=== PATIENT | male | born 1950 | race Caucasian/White ===

== ENCOUNTER 2016-07-21 11:55 | Observation (INO) | payer MEDICARE, OTHER ==
[~2016-07-21] VITALS: Ht 167.6 cm; Wt 70.0 kg
[2016-07-21] MEDS ORDERED: SOD CHLORIDE 0.9% 1,000 ML IV STA (12:08)
[2016-07-21] MEDS ORDERED: DILTIAZEM-D5W 125MG/125ML DRIP 125 ML IV STA (12:28)
[2016-07-21] MEDS ORDERED: DILTIAZEM 25 MG INJ IV ONE (12:30)
[2016-07-21] MEDS ORDERED: DILT120C77 PO (12:33)
[2016-07-21] MEDS ORDERED: LISI10TA2 PO (12:34)
[2016-07-21] MEDS ORDERED: TERA2CAP3 PO (12:34)
[2016-07-21] MEDS ORDERED: DOCU250C58 PO (12:35)
[2016-07-21] MEDS ORDERED: TAMS0.4C2 PO (12:35)
[2016-07-21] MEDS ORDERED: CLON-379 PO (12:35)
[2016-07-21 12:43] LABS: BASOPHILS % 0.4 % (0.0-2.0); EOSINOPHILS % 0.4 % (0.0-7.0); HEMATOCRIT 46.9 % (42.0-52.0); HEMOGLOBIN 15.9 g/dl (14.0-18.0); LYMPHOCYTES # 2.4 10^3/ul (0.8-2.9); LYMPHOCYTES % 22.8 % (15.0-51.0); MEAN CORPUSCULAR HEMOGLOBIN 31.3 pg (29.0-33.0); MEAN CORPUSCULAR HGB CONC 33.8 g/dl (32.0-37.0); MEAN CORPUSCULAR VOLUME 92.4 fl (82.0-101.0); MEAN PLATELET VOLUME 8.6 fl (7.4-10.4); MONOCYTE # 0.3 10^3/ul (0.3-0.9); MONOCYTES % 2.6 % (0.0-11.0); NEUTROPHIL # 7.8 10^3/ul (1.6-7.5); NEUTROPHILS % 73.8 % (39.0-77.0); PLATELET COUNT 272 10^3/UL (140-440); RED BLOOD COUNT 5.08 10^6/ul (4.70-6.10); RED CELL DISTRIBUTION WIDTH 12.2 % (11.5-14.5); UNCORRECTED WBC 10.6 10^3/ul (4.8-10.8); WHITE BLOOD COUNT 10.6 10^3/ul (4.8-10.8)
[2016-07-21 12:46] LABS: CONDITION 1
[2016-07-21] MEDS ORDERED: DEXTROSE 50% 50 ML SYRINGE IV STA (13:01)
[2016-07-21 13:05] LABS: CHLORIDE 102 mmol/L (97-110); POTASSIUM 3.8 mmol/L (3.5-5.1); SODIUM 146 mmol/L (135-144)
[2016-07-21 13:07] LABS: BILIRUBIN,INDIRECT 0.2 mg/dl (0-1.1); BILIRUBIN,TOTAL 0.2 mg/dl (0.2-1.3); CREATININE 1.17 mg/dl (0.61-1.24)
[2016-07-21 13:08] LABS: ALANINE AMINOTRANSFERASE 32 IU/L (13-69); ALBUMIN/GLOBULIN RATIO 1.56; ALKALINE PHOSPHATASE 111 IU/L (42-121); ANION GAP 29 (8-16); ASPARTATE AMINO TRANSFERASE 38 IU/L (15-46); BLOOD UREA NITROGEN 26 mg/dl (7-20); CALCIUM 9.5 mg/dl (8.4-10.2); CARBON DIOXIDE 19 mmol/L (21-31); CREATINE KINASE 164 IU/L (23-200); GLUCOSE 59 mg/dl (70-220); TOTAL PROTEIN 8.2 g/dl (6.1-8.1)
--- NOTE | 2016-07-21 13:08 | ERA ---
ER Documentation Chief Complaint Date/Time DATE: 07/21/16 TIME: 13:03 Chief Complaint BIB RA FOR EVAL OF TACHYCARDIA AND LOW BG. HPI This is a 65-year-old male with a known history of atrial fibrillation, hypertension and high cholesterol. The patient states that upon awakening this morning he had palpitations without chest pain or pressure that radiated to the neck arm back or jaw. He indicated that yesterday he had been drinking a significant amount of alcohol with some friends who were in town and had not eaten breakfast this morning. He felt weak and dizzy and therefore phoned 911. When EMS arrived they indicated that the patient had an EKG tracing that showed sinus tachycardia 160. He was hypoglycemic with a blood sugar of 50 and was given glucose paste. The patient had no changes in his mental status according to EMS and he was able to ambulate without any difficulty. He denied headache or changes in vision. He denied any numbness or tingling of his upper or lower extremities. He does not have a history of diabetes. He denies any polyuria or polydipsia. He has been compliant with all his medications which includes diltiazem. ROS All systems reviewed and are negative except as per history of present illness. Medications Home Meds Reported Medications Docusate Sodium* (Colace*) 250 Mg Capsule, 250 MG PO BID, #60 CAP 07/21/16 Clonidine Hcl* (Clonidine Hcl*) 0.1 Mg Tab, 0.1 MG PO Q8, TAB 07/21/16 Tamsulosin Hcl* (Tamsulosin Hcl*) 0.4 Mg Cap.er.24h, 0.4 MG PO DAILY, CAP 07/21/16 Lisinopril* (Lisinopril*) 10 Mg Tablet, 10 MG PO DAILY, #30 TAB 07/21/16 Terazosin Hcl* (Terazosin Hcl*) 2 Mg Capsule, 2 MG PO HS, CAP 07/21/16 Diltiazem Hcl* (Cardizem CD*) 120 Mg Cap.sr.24h, 120 MG PO DAILY, #30 CAP 07/21/16 Allergies Allergies: Coded Allergies: No Known Allergy (Unverified , 07/21/16) Physical Exam Vitals Vital Signs Date Time Temp Pulse Resp B/P Pulse Ox O2 Delivery O2 Flow Rate FiO2 07/21/16 13:27 128 19 158/82 100 Room Air 07/21/16 12:09 97.6 159 20 161/114 100 Physical Exam Constitutional:Well-developed. Well-nourished. HEENT:Normocephalic. Atraumatic.Pupils were equal round reactive to light. Moist mucous membranes.No tonsillar exudates. Neck: No nuchal rigidity. No lymphadenopathy. No posterior cervical spine tenderness or step-offs. Respiratory: Not using accessory muscles of respiration.Lungs were clear to auscultation bilaterally. No rhonchi. No rales. No wheezing. Cardiovascular: Tachycardic with irregular regular rhythm and no murmurs. No rubs were appreciated.S1, S2 normal. Distal pulses are palpable 2+ bilaterally. GI: Abdomen was soft. Nontender. Non Distended. No pulsatile abdominal masses or bruits. No rebound. No guarding. Bowel sounds were present and normal. Muscle skeletal: Full range of motion of both the upper and lower extremities bilaterally.Normal muscle tone.No assymetrical calf tenderness or swelling. Skin: No petechia, no purpura. No lesions on the palms or the soles of the feet. No maculopapular rash. NEURO: Patient was alert, awake, orientated x3.No facial droop. Gait observed and normal with no ataxia.Speech had regular rate and rhythm. No focal neurological deficits. Result Diagram: 07/21/16 1230 07/21/16 1230 Results 24 hrs Laboratory Tests Test 07/21/16 12:21 07/21/16 12:30 07/21/16 13:30 Bedside Glucose 59mg/dL 115mg/dL Activated Partial Thromboplast Time 28.2Sec Alanine Aminotransferase (ALT/SGPT) 32IU/L Albumin 5.0g/dl Albumin/Globulin Ratio 1.56 Alkaline Phosphatase 111IU/L Anion Gap 29 Aspartate Amino Transf (AST/SGOT) 38IU/L B-Type Natriuretic Peptide 62PG/ML Basophils # 0.010^3/ul Basophils % 0.4% Blood Urea Nitrogen 26mg/dl Calcium Level 9.5mg/dl Carbon Dioxide Level 19mmol/L Chloride Level 102mmol/L Creatine Kinase 164IU/L Creatine Kinase Index 1.6 Creatinine 1.17mg/dl Creatinine Kinase MB (Mass) 2.62ng/ml Direct Bilirubin 0.00mg/dl Eosinophils # 0.010^3/ul Eosinophils % 0.4% Ethyl Alcohol Level 63.0mg/dl Globulin 3.20g/dl Glucose Level 59mg/dl Hematocrit 46.9% Hemoglobin 15.9g/dl Hemoglobin A1c 5.8% INR International Normalized Ratio 0.94 Indirect Bilirubin 0.2mg/dl Lipase 63U/L Lymphocytes # 2.410^3/ul Lymphocytes % 22.8% Mean Corpuscular Hemoglobin 31.3pg Mean Corpuscular Hemoglobin Concent 33.8g/dl Mean Corpuscular Volume 92.4fl Mean Platelet Volume 8.6fl Monocytes # 0.310^3/ul Monocytes % 2.6% Neutrophils # 7.810^3/ul Neutrophils % 73.8% Nucleated Red Blood Cells # 0.010^3/ul Nucleated Red Blood Cells % 0.0/100WBC Platelet Count 44186^3/UL Potassium Level 3.8mmol/L Prothrombin Time 12.6Sec Prothrombin Time Ratio 1.0 Red Blood Count 5.0810^6/ul Red Cell Distribution Width 12.2% Sodium Level 146mmol/L Total Bilirubin 0.2mg/dl Total Protein 8.2g/dl Troponin I < 0.012ng/ml White Blood Count 10.610^3/ul Current Medications Medications (Trade) Dose Ordered Sig/Efraín Route PRN Reason Start Time Stop Time Status Last Admin Dose Admin Sodium Chloride (NS) 1,000 ml @ 1,000 mls/hr Q1H STAT IV 07/21/16 12:08 07/21/16 13:07 DC 07/21/16 12:22 Diltiazem HCl 20 mg 20 mg ONCE ONCE IV 07/21/16 12:30 07/21/16 12:31 DC 07/21/16 12:40 Diltiazem HCl (Cardizem-D5W 125 Mg/125 ml Drip) 125 ml @ 5 mls/hr ONCE STAT IV 07/21/16 12:28 07/22/16 13:27 07/21/16 12:40 Dextrose (D50w Syringe) 50 ml ONCE STAT IV 07/21/16 13:01 07/21/16 13:06 DC Procedures/MDM This patient presented to the emergency department with hypoglycemia and tachycardia. He was immediately placed on a property assessment monitor continuous pulse oximetry and IV access was established by nursing staff. The patient was alert awake oriented 3 and was given oral complex carbohydrates to improve his hypoglycemia in addition to an amp of D50. The patient does not have a history of diabetes and I did feel his hypoglycemia could be a result of lack of oral intake with alcohol consumption within the past 24 hours. The patient however was in atrial fibrillation with RVR and therefore was given IV Cardizem and started on a Cardizem drip. 12 Lead EKG tracing ordered and reviewed by myself showed: Tachycardic with irregular regular rhythm at 558 bpm and no arrhythmia. IN interval not appreciated as patient had no P waves and was in A. fib with RVR QRS duration normal. No ST segment elevation No ST segment depression. No changes consistent with acute ischemia. The patient will be admitted under the care of , in serious condition with an anticipated stay of greater than 2 midnights and will go to the telemetry service. The patient did have an episode of nonbloody nonbilious emesis in the emergency department. The patient was given a banana bag his serum ethanol level was undetected to supplement for any metabolic abnormalities from his clinical symptoms likely as a result of alcoholic gastritis. He received IV Zofran. Critical Care: Time: 50 minutes Treatments/Evaluations: Close monitoring and treatment of unstable vital signs, cardiorespiratory, and neurologic status, while maintaining tight balance of fluid, respiratory, and cardiac interventions. Time does not include performing any of the above billable procedures. Departure Diagnosis: Primary Impression: Atrial fibrillation with RVR Additional Impressions: Hypoglycemia Acute alcoholic gastritis without hemorrhage Condition: Serious PAYAM MAKI Jul 21, 2016 13:08
[2016-07-21 13:12] LABS: INR 0.94; PROTIME 12.6 Sec (12.2-14.2)
[2016-07-21 13:13] LABS: PARTIAL THROMBOPLASTIN TIME 28.2 Sec (25.0-35.0)
--- NOTE | 2016-07-21 13:26 | RADRPT ---
PROCEDURE: XR Chest. CLINICAL INDICATION: Chest pain. TECHNIQUE: Chest x-ray, single view. COMPARISON: None. FINDINGS: The cardiomediastinal silhouette is normal. Mild aortic arch atherosclerotic calcification is presen t. The lungs are clear. Skeletal structures and upper abdomen are unremarkable. IMPRESSION: Unremarkable chest x-ray. RPTAT: HLST .Tracie May MD, MD Date Time Electronically viewed and signed by .Tracie May MD, on 07/21/2016 13:25 .T/
[2016-07-21 13:32] LABS: B-TYPE NATRIURETIC PEPTIDE 62 PG/ML (0-125)
[2016-07-21] MEDS ORDERED: MAGNESIUM SULFATE 2 GM, MULTIVITAMINS 10 ML, THIAMINE 100 MG, FOLIC ACID 1 MG in SOD CH... IV STA (13:32)
[2016-07-21] MEDS ORDERED: ONDANSETRON 4 MG INJ IV STA (13:32)
[2016-07-21 13:37] LABS: CK-MB 2.62 ng/ml (0.0-2.4); TROPONIN-I < 0.012 ng/ml (0.00-0.12)
[2016-07-21] MEDS ORDERED: ONDANSETRON 4 MG INJ IV PRN ×2 (14:30→16:30)
[2016-07-21] MEDS ORDERED: ACETAMINOPHEN 325 MG TAB PO PRN ×2 (14:30→16:30)
[2016-07-21] MEDS ORDERED: MAGNESIUM HYDROXIDE 30ML CUP PO PRN (16:30)
[2016-07-21] MEDS ORDERED: MAGNESIUM SULFATE 2 GM/50 ML 50 ML IVPB ONE (16:30)
[2016-07-21] MEDS ORDERED: BISACODYL 10 MG SUPP PR PRN (16:30)
[2016-07-21] MEDS ORDERED: DOCUSATE SODIUM 100 MG CAP PO PRN (16:30)
[2016-07-21] MEDS ORDERED: morphine 2 MG INJ IV PRN (16:30)
[2016-07-21] MEDS ORDERED: NACL 0.9% 3 ML SYG IV SCH (16:30)
[2016-07-21] MEDS ORDERED: DEXTROSE 50% 50 ML SYRINGE IV PRN ×2 (17:00)
[2016-07-21] MEDS ORDERED: GLUCOSE GEL 15 GRAM TUBE PO PRN ×2 (17:00)
[2016-07-21] MEDS ORDERED: GLUCOSE GEL 15 GRAM TUBE BUCCAL PRN (17:00)
[2016-07-21] MEDS ORDERED: GLUCAGON 1 MG INJ IM PRN (17:00)
--- NOTE | 2016-07-21 18:24 | HP ---
DATE OF ADMISSION: 07/21/2016 PRIMARY CARE PHYSICIAN: Dr. Ahuja. CHIEF COMPLAINT ON ADMISSION: Palpitations. HISTORY OF PRESENT ILLNESS: This is a 65-year-old male with a history of hypertension on multiple m edications including Cardizem and also history of kidney stones who presented to the [facility] with complaint of palpitations that he started feeling around 9 a.m. this morning. The patien yenni reports that last night he went to a democrat with his friends and he did drink a large amount of teq uila. When he woke up this morning he was having the palpitations. He was nauseous. He did take h is diltiazem this morning. In the emergency department, he was found to be in atrial fibrillation w ith rapid ventricular rate with heart rate in the 160s. His heart rate remained high even with 20 m g of Cardizem IV. Therefore, he was started on a Cardizem drip. The patient just converted this af ternoon around 5 p.m. to sinus rhythm. He will be taken off the Cardizem drip and restarted on his Cardizem outpatient dosing. The patient denies any fevers, chills. He denies nausea and vomiting a ctually. He feels much better currently. He was given a banana bag in the emergency department and started on IV fluids. He denies any previous history of atrial fibrillation or arrhythmia. He is still working and he is very active. He walks a total of 4 miles a day. He is being [facility] work[facility]. ALLERGIES: NO KNOWN ALLERGIES. PAST MEDICAL HISTORY: 1. Nephrolithiasis. 2. Hypertension. PAST SURGICAL HISTORY: None. SOCIAL HISTORY: The patient lives with family. He denies any tobacco use or history of tobacco use . He does drink alcohol occasionally and obviously a little heavily yesterday. OUTPATIENT MEDICATIONS: 1. Cardizem CD 120 mg p.o. daily in the morning. 2. Clonidine 0.1 mg p.o. q. 8 hours as needed for elevated blood pressure. 3. Flomax 0.4 mg p.o. daily. 4. Terazosin 2 mg p.o. at bedtime. 5. Colace 250 mg p.o. b.i.d. 6. Lisinopril 10 mg p.o. daily. PHYSICAL EXAMINATION: VITAL SIGNS: Temperature is 98.2, heart rate of 79, sinus rhythm currently, he converted around 5 p .m., respiratory rate of 19, blood pressure 149/78. The patient is 100% on room air. GENERAL: He is alert and oriented x4. He is in no acute distress currently. He is much more comfo rtable. He has no palpitations. HEENT: Pupils are equally round and reactive to light. Extraocular muscles are intact. Anicteric sclerae. NECK: No JVD, no thyromegaly noted. HEART: Regular rate and rhythm. No murmur, rubs, or gallops and currently he is in sinus rhythm. LUNGS: Clear to auscultation bilaterally. ABDOMEN: Soft, nontender, nondistended. Bowel sounds are present. EXTREMITIES: No edema, clubbing or cyanosis. NEUROLOGIC: Grossly intact. LABORATORY DATA: White blood cell count 10.6, hemoglobin 15.9, hematocrit 46.9, platelet count of 2 72. Chemistry with a sodium of 146, potassium 3.8, chloride 102, bicarbonate 19, BUN 26, creatinine 1.17, glucose was 59 on admission; it is now 115, hemoglobin A1c of 5.8. Liver function testing wi thin normal. Troponin is negative. Lipase 63, albumin of 5.0, total protein of 8.2. INR is 0.94, PT 12.6, PTT 28.2. His alcohol level was at 63. EKG shows atrial fibrillation on admission with rapid ventricular rate, heart rate of 160. RADIOLOGICAL DATA: Chest x-ray today is fairly unremarkable with no cardiopulmonary disease. ASSESSMENT AND PLAN: 1. Atrial fibrillation, new onset. This is again after the patient consumed a large amount of alco hol yesterday. He may have underlying paroxysmal atrial fibrillation. He has been on Cardizem and denies any previous diagnosis that Cardizem was being given for blood pressure. The patient was on a Cardizem drip throughout the day. He will be switched back to oral Cardizem as of tonight, and he may benefit from being on Cardizem twice daily at 120 mg, that would also help with his blood press ure and he can stay away from the clonidine. We will check thyroid function testing, 2-D echocardio gram since this is a new onset, and I will discuss with cardiology as this seems to be episode , regarding possibly needing anticoagulation. For now he is on Lovenox subQ for DVT prophylaxis. 2. Hypertension. Continue Cardizem at a higher dose for also goal of heart rate control and the cl onidine is a p.r.n. His lisinopril has been discontinued. 3. Mild acute kidney injury and dehydration in setting of alcohol, mild intoxication. Continue IV fluids. Since the patient is now back to sinus rhythm and doing better, we will decrease his IV flu ids to 100 mL an hour and monitor overnight. 4. History of nephrolithiasis. The patient has been on Flomax and terazosin will be continued duri ng his stay. 6. Prophylaxis: Pepcid for gastrointestinal prophylaxis, Lovenox for deep vein thrombosis prophyla xis. DISPOSITION: The patient is admitted to telemetry. We will make sure he is on observation and foll ow up on his cardiac workup. Dictated By: ZONIA DOMINGUEZ/NTS Conf#: [id number] DID#: [id number]
[2016-07-21] MEDS: FAMOTIDINE 20 MG TAB PO SCH (20:49)
[2016-07-21] MEDS: DILTIAZEM (CD) 120 MG CAP PO SCH (20:49)
[2016-07-21] MEDS: DOCUSATE SODIUM 250 MG CAP PO SCH (20:50)
[2016-07-21] MEDS ORDERED: TERAZOSIN 2 MG CAP PO SCH (21:00)
[2016-07-21] MEDS ORDERED: TAMSULOSIN (SR) 0.4 MG CAP PO SCH (21:00)
[2016-07-21] MEDS: SOD CHLORIDE 0.9% 1,000 ML IV SCH (21:15)
[2016-07-21 21:53] LABS: TROPONIN-I 0.05 ng/ml (0.00-0.12)
[2016-07-21 21:56] LABS: CK-MB 2.57 ng/ml (0.0-2.4)
[2016-07-21 22:00] VITALS: TEMP 98.3
[2016-07-21 23:00] VITALS: BP 150/71; PULSE 106; RESP 20
[2016-07-21 23:27] VITALS: PULSE 95
[2016-07-22] VITALS (10 sets, daily range): BP systolic 125–149; BP diastolic 61–76; PULSE 68–102; RESP 18–20; Ht 167.6 cm; Wt 70.0 kg
[2016-07-22] MEDS: SOD CHLORIDE 0.9% 1,000 ML IV SCH (06:16)
[2016-07-22 07:28] LABS: ALBUMIN 3.6 g/dl (3.3-4.9)
[2016-07-22 07:30] LABS: BASOPHILS % 0.3 % (0.0-2.0); EOSINOPHILS % 0.4 % (0.0-7.0); HEMATOCRIT 36.8 % (42.0-52.0); HEMOGLOBIN 13.1 g/dl (14.0-18.0); LYMPHOCYTES # 1.4 10^3/ul (0.8-2.9); LYMPHOCYTES % 25.1 % (15.0-51.0); MEAN CORPUSCULAR HEMOGLOBIN 32.3 pg (29.0-33.0); MEAN CORPUSCULAR HGB CONC 35.5 g/dl (32.0-37.0); MEAN CORPUSCULAR VOLUME 90.9 fl (82.0-101.0); MEAN PLATELET VOLUME 8.5 fl (7.4-10.4); MONOCYTE # 0.4 10^3/ul (0.3-0.9); MONOCYTES % 7.8 % (0.0-11.0); NEUTROPHIL # 3.8 10^3/ul (1.6-7.5); NEUTROPHILS % 66.4 % (39.0-77.0); PLATELET COUNT 200 10^3/UL (140-440); RED BLOOD COUNT 4.05 10^6/ul (4.70-6.10); RED CELL DISTRIBUTION WIDTH 12.2 % (11.5-14.5); UNCORRECTED WBC 5.7 10^3/ul (4.8-10.8); WHITE BLOOD COUNT 5.7 10^3/ul (4.8-10.8)
[2016-07-22 07:31] LABS: ALBUMIN/GLOBULIN RATIO 1.28; BILIRUBIN,INDIRECT 0.5 mg/dl (0-1.1); BILIRUBIN,TOTAL 0.5 mg/dl (0.2-1.3); CREATININE 0.94 mg/dl (0.61-1.24); TOTAL PROTEIN 6.4 g/dl (6.1-8.1)
[2016-07-22 07:32] LABS: CALCIUM 8.2 mg/dl (8.4-10.2); CHOL/HDL RATIO 2.8 RATIO; MAGNESIUM 2.5 mg/dl (1.7-2.5)
[2016-07-22 07:46] LABS: CONDITION 1
[2016-07-22] MEDS: DOCUSATE SODIUM 250 MG CAP PO SCH (08:21)
[2016-07-22] MEDS: DILTIAZEM (CD) 120 MG CAP PO SCH (08:21)
[2016-07-22] MEDS: FAMOTIDINE 20 MG TAB PO SCH (08:21)
[2016-07-22] MEDS ORDERED: ASPIRIN 81 MG TAB PO SCH (09:00)
[2016-07-22] MEDS ORDERED: ENOXAPARIN 40 MG/0.4 ML SYG SC SCH (09:00)
[2016-07-22] MEDS ORDERED: LISINOPRIL 10 MG TAB PO SCH (09:00)
--- NOTE | 2016-07-22 10:20 | PN ---
Date/Time of Note Date/Time of Note DATE: 07/22/16 TIME: 10:12 Assessment/Plan VTE Prophylaxis VTE Prophylaxis Intervention: LMWH Lines/Catheters IV [facility] Urinary Cath still in place: No Assessment/Plan Assessment/Plan 65 yo male with 1. Atrial fibrillation, new onset. Now back to SR Unclear if patient has been paroxysmal actually and just controlled with Cardizem 2D echo done and results pending I will start patient on Xarelto with outpatient cardiology referral Continue Cardizem CD at 120 mg po bid 2. Hypertension. Continue Cardizem at a higher dose for also goal of heart rate control and the clonidine is a p.r.n. D/c Lisinopril. 3. Mild acute kidney injury and dehydration in setting of alcohol, mild intoxication. Resolved D/c IV fluids. 4. History of nephrolithiasis. Continue Flomax and terazosin. Prophylaxis: Pepcid for gastrointestinal prophylaxis, Lovenox for deep vein thrombosis prophylaxis. DISPOSITION: D/c home with PCP and outpatient cardiology anticoagulation. Subjective 24 Hr Interval Summary Free Text/Dictation Patient doing well, in SR since yesterday afternoon and on higher dose of Cardizem Exam/Review of Systems Vital Signs Vitals Vital Signs Date Time Temp Pulse Resp B/P Pulse Ox O2 Delivery O2 Flow Rate FiO2 07/22/16 09:38 88 07/22/16 08:15 98.0 20 127/61 97 07/22/16 04:00 Room Air Intake and Output 07/21/16 07/21/16 07/22/16 15:00 23:00 07:00 Intake Total 2065.2 ml 1900 ml Balance 2065.2 ml 1900 ml Exam Constitutional: alert, oriented, well developed Respiratory: clear to auscultation, normal air movement Cardiovascular: nl pulses, regular rate and rhythm Gastrointestinal: non-tender, soft Musculoskeletal: nl extremities to inspection, nl gait and stance Extremities: normal pulses, other (no edema, clubbing or cyanosis) Neurological: MANAGER STAFFING II-XII intact, nl mental status, nl speech, nl strength Results Result Diagram: 07/22/16 0636 07/22/16 0636 Results 24 hrs Laboratory Tests Test 07/21/16 12:21 07/21/16 12:30 07/21/16 13:30 07/21/16 20:30 Bedside Glucose 59 L 115 Activated Partial Thromboplast Time 28.2 Alanine Aminotransferase (ALT/SGPT) 32 Albumin 5.0 H Albumin/Globulin Ratio 1.56 Alkaline Phosphatase 111 Anion Gap 29 H Aspartate Amino Transf (AST/SGOT) 38 B-Type Natriuretic Peptide 62 Basophils # 0.0 Basophils % 0.4 Blood Urea Nitrogen 26 H Calcium Level 9.5 Carbon Dioxide Level 19 L Chloride Level 102 Creatine Kinase 164 116 Creatine Kinase Index 1.6 2.2 Creatinine 1.17 Creatinine Kinase MB (Mass) 2.62 H 2.57 H Direct Bilirubin 0.00 Eosinophils # 0.0 Eosinophils % 0.4 Ethyl Alcohol Level 63.0 Free Thyroxine 1.58 Globulin 3.20 Glucose Level 59 L Hematocrit 46.9 Hemoglobin 15.9 Hemoglobin A1c 5.8 INR International Normalized Ratio 0.94 Indirect Bilirubin 0.2 Lipase 63 Lymphocytes # 2.4 Lymphocytes % 22.8 Magnesium Level 1.9 Mean Corpuscular Hemoglobin 31.3 Mean Corpuscular Hemoglobin Concent 33.8 Mean Corpuscular Volume 92.4 Mean Platelet Volume 8.6 Monocytes # 0.3 Monocytes % 2.6 Neutrophils # 7.8 H Neutrophils % 73.8 Nucleated Red Blood Cells # 0.0 Nucleated Red Blood Cells % 0.0 Platelet Count 272 Potassium Level 3.8 Prothrombin Time 12.6 Prothrombin Time Ratio 1.0 Red Blood Count 5.08 Red Cell Distribution Width 12.2 Sodium Level 146 H Thyroid Stimulating Hormone (TSH) 0.361 L Total Bilirubin 0.2 Total Protein 8.2 H Troponin I < 0.012 0.050 White Blood Count 10.6 Test 07/22/16 06:36 Alanine Aminotransferase (ALT/SGPT) 29 Albumin 3.6 # Albumin/Globulin Ratio 1.28 Alkaline Phosphatase 77 Anion Gap 15 # Aspartate Amino Transf (AST/SGOT) 26 Basophils # 0.0 Basophils % 0.3 Blood Urea Nitrogen 18 Calcium Level 8.2 L Carbon Dioxide Level 25 Chloride Level 103 Cholesterol Level 150 Cholesterol/HDL Ratio 2.8 Creatinine 0.94 Direct Bilirubin 0.00 Eosinophils # 0.0 Eosinophils % 0.4 Globulin 2.80 Glucose Level 128 # HDL Cholesterol 53 Hematocrit 36.8 #L Hemoglobin 13.1 L Indirect Bilirubin 0.5 LDL Cholesterol, Calculated 79 Lymphocytes # 1.4 Lymphocytes % 25.1 Magnesium Level 2.5 Mean Corpuscular Hemoglobin 32.3 Mean Corpuscular Hemoglobin Concent 35.5 Mean Corpuscular Volume 90.9 Mean Platelet Volume 8.5 Monocytes # 0.4 Monocytes % 7.8 Neutrophils # 3.8 Neutrophils % 66.4 Nucleated Red Blood Cells # 0.0 Nucleated Red Blood Cells % 0.0 Platelet Count 200 # Potassium Level 4.0 Red Blood Count 4.05 #L Red Cell Distribution Width 12.2 Sodium Level 139 Total Bilirubin 0.5 Total Protein 6.4 # Triglycerides Level 89 White Blood Count 5.7 # Medications Medications Current Medications Clonidine (Catapres) 0.1 mg Q8 PRN PO ELEVATED BLOOD PRESSURE; Start 07/21/16 at 16:30 Diltiazem HCl (Cardizem Cd) 120 mg BID PO Last administered on 07/22/16 08:21 ; Admin Dose 120 MG; Start 07/21/16 at 21:00 Docusate Sodium (Colace) 250 mg BID PO Last administered on 07/22/16 08:21; Admin Dose 250 MG; Start 07/21/16 at 21:00 Tamsulosin HCl (Flomax) 0.4 mg QHS PO Last administered on 07/21/16 20:49; Admin Dose 0.4 MG; Start 07/21/16 at 21:00 Terazosin HCl (Hytrin) 2 mg HS PO Last administered on 07/21/16 20:49; Admin Dose 2 MG; Start 07/21/16 at 21:00 Ondansetron HCl (Zofran Inj) 4 mg Q6H PRN IV NAUSEA AND/OR VOMITING; Start at 16:30 Aspirin (Aspirin) 81 mg DAILY PO Last administered on 07/22/16 08:20; Admin Dose 81 MG; Start 07/22/16 at 09:00 Acetaminophen (Tylenol Tab) 650 mg Q6H PRN PO PAIN LEVEL 1-3 OR FEVER; Start at 16:30 Morphine Sulfate (morphine) 2 mg Q4H PRN IV PAIN LEVEL 7-10; Start 07/21/16 at 16:30 Docusate Sodium (Colace) 100 mg Q12H PRN PO CONSTIPATION; Start 07/21/16 at 16: 30 Magnesium Hydroxide (Milk Of Mag) 30 ml DAILY PRN PO CONSTIPATION; Start at 16:30 Bisacodyl (Dulcolax Supp) 10 mg DAILY PRN [place] CONSTIPATION; Start 07/21/16 at 16 :30 Famotidine (Pepcid) 20 mg Q12 PO Last administered on 07/22/16t 08:21; Admin Dose 20 MG; Start 07/21/16 at 21:00 Enoxaparin Sodium (Lovenox) 40 mg DAILY SC ; Start 07/22/16 at 09:00 Miscellaneous Information 1 ea NOTE XX ; Start 07/21/16 at 17:00 Glucose (Glutose) 15 gm Q15M PRN PO DECREASED GLUCOSE; Start 07/21/16 at 17:00 Glucose (Glutose) 22.5 gm Q15M PRN PO DECREASED GLUCOSE; Start 07/21/16 at 17: 00 Dextrose (D50w Syringe) 25 ml Q15M PRN IV DECREASED GLUCOSE; Start 07/21/16 at 17:00 Dextrose (D50w Syringe) 50 ml Q15M PRN IV DECREASED GLUCOSE; Start 07/21/16 at 17:00 Glucagon (Glucagen) 1 mg Q15M PRN IM DECREASED GLUCOSE; Start 07/21/16 at 17:00 Glucose (Glutose) 15 gm Q15M PRN BUCCAL DECREASED GLUCOSE; Start 07/21/16 at 17 :00 ZONIA CANELA Jul 22, 2016 10:20 ZONIA CANELA Jul 22, 2016 10:20
--- NOTE | 2016-07-22 10:22 | PDOCDIS ---
Discharge Instructions CONDITION Patient Condition: Good HOME CARE INSTRUCTIONS: Diet Instructions: Low Fat /Cholesterol ACTIVITY: Activity Restrictions: No Restrictions FOLLOW UP/APPOINTMENTS Appointments Follow up with PCP within 1 week Referral to Cardiology, Dr Mosher within 1 to 2 weeks re A fib episode ZONIA CANELA Jul 22, 2016 10:22
[2016-07-22] MEDS ORDERED: DILT120C77 PO (10:24)
[2016-07-22] MEDS ORDERED: APIX5TAB PO (10:24)
[2016-07-22] MEDS ORDERED: RIVA20TA PO (15:25)
[2016-07-22] MEDS ORDERED: RIVAROXABAN 20 MG TABLET PO SCH (16:30)
--- NOTE | 2016-07-22 18:43 | RADRPT ---
Echocardiogram Report Patient Name: LILA STINSON Gender: Male Date: 1950 Study Date: 22-Jul-2016 Maintenance Dispatcher: Armand Mccartney [facility] Location: 5545 Ref. Physician: DONIS CANELA Quality: Adequate Procedures: Transthoracic echocardiogram with complete 2D, M-Mode, and doppler examination. Indications: new onset Atrial Fibrillation. 2D/M Mode Doppler Measurement Value Normal Ranges Measurement Value Normal Ranges LVIDd 2D 4.8 3.5 - 5.6 cm AV Peak Sergio 1.4 m/sec LVIDs 2D 2.4 2.1 - 4.1 cm AV Peak PG 8.0 mmHg FS 2D 49.6 % AI Peak PG 49.0 mmHg LVPWd 2D 0.8 0.6 - 1.1 cm AI Peak Sergio 3.5 m/sec IVSd 2D 1.0 0.6 - 1.1 cm AI PHT 382.0 msec IVS/LVPW 2D 1.2 LVOT Peak Sergio 1.1 m/sec AoR Diam 2D 3.0 2.0 - 3.7 cm LVOT Peak PG 5.0 mmHg LA/Ao 2D 1 0 - 1 MV E Peak Sergio 0.7 m/sec EDV 2D 109.0 cm3 MV A Peak Sergio 0.8 m/sec ESV 2D 14.0 cm3 MV E/A 0.9 LA Dimen 2D 3.4 2.3 - 4.0 cm MV Decel Time 155 msec MV E/A 0.9 TR Peak Sergio 2.3 m/sec TR Peak PG 21.0 mmHg RVSP 24.0 mmHg Findings Left Ventricle: Normal left ventricular systolic function. Normal left ventricular cavity size. Normal left ventricular wall thickness. Ejection fraction is visually estimated at 65 %. Tissue Doppler/Mitral Doppler indices are consistent with impaired relaxation (Stage I diastolic dysfunction). Right Ventricle: Normal right ventricular size. Normal right ventricular systolic function. Left Atrium: The left atrium is normal in size. Right Atrium: The right atrium is normal in size. Mitral Valve: Mitral valve leaflets appear mildly thickened. Mild mitral annular calcification. Trace mitral regurgitation. Aortic Valve: No hemodynamically significant aortic stenosis by doppler. Aortic cusps appear mildly calcified. Trace aortic valve regurgitation. Tricuspid Valve: Normal appearance of the tricuspid valve. Estimated peak PA systolic pressure 24 mmHg. There is trace tricuspid regurgitation. Pulmonic Valve: Normal pulmonic valve appearance. Pericardium: Normal pericardium with no significant pericardial effusion. Aorta: Normal aortic root. IVC: Normal size and normal respiratory collapse consistent with normal right atrial pressure. Conclusions 1.Normal left ventricular systolic function. Normal left ventricular cavity size. Normal left ventricular wall thickness. Ejection fraction is visually estimated at 65 %. Tissue Doppler/Mitral Doppler indices are consistent with impaired relaxation (Stage I diastolic dysfunction). 2.Normal right ventricular size. Normal right ventricular systolic function. 3.The left atrium is normal in size. 4.The right atrium is normal in size. 5.No significant valvular stenosis or regurgitation seen. 6.Normal pericardium with no significant pericardial effusion. Electronically Signed By: Candelario Alcantar 22-Jul-2016 18:41:58 -0800 Patient Name: LILA STINSON Study Date: 22-Jul-2016 [id number]
--- NOTE | 2016-07-22 19:02 | DS ---
DATE OF ADMISSION: 07/21/2016 DATE OF DISCHARGE: 07/22/2016 PRIMARY CARE PHYSICIAN: CHIEF COMPLAINT ON ADMISSION: Palpitations. BRIEF HISTORY OF PRESENTING ILLNESS: This is a 65-year-old male with history of hypertension, mild hyperlipidemia, who presented to the emergency department with the findings of palpitation. He was diagnosed with atrial fibrillation with rapid ventricular rate. Patient had to be put on a Cardizem drip and admitted to telemetry. HOSPITAL COURSE: The patient reported that he was on Cardizem for blood pressure control, but he d id take it on the morning of admission and still had this episode of atrial fibrillation with rapid ventricular rate. He did require a Cardizem drip at 10 mg an hour for most of the day prior to conv erting to sinus rhythm. He was, therefore, placed on Cardizem-CD 120 mg p.o. b.i.d., and he did rec eive a dose of aspirin in the ER, but due to the fact that he did sustain his atrial fibrillation fo r a while, I have advised for him to go on anticoagulation. He does have a few risk factors. King barragan is put on Xarelto. He will get a dose today prior to discharge and fill the prescription. A dis count card was given to him. He will be referred to group for cardiology referral where komal otero can be reassessed regarding this atrial fibrillation. His 2-D echocardiogram was done, and the fi nal reading is pending. The patient is in stable condition and will be discharged home and has been advised to avoid heavy drinking. DISPOSITION: Discharge home. DISCHARGE CONDITION: Stable. DISCHARGE DIET: Cardiac diet. DISCHARGE ACTIVITY: Resume home activity. The patient is very active. He walks 4 miles a day. DISCHARGE DIAGNOSES: 1. Newly diagnosed paroxysmal atrial fibrillation. 2. Hypertension. 3. Mild acute kidney injury, resolved. 4. Mild alcoholic intoxication, resolved. 5. History of nephrolithiasis. DISCHARGE MEDICATIONS: 1. Xarelto 20 mg p.o. daily. 2. Colace 250 mg p.o. b.i.d. 3. Flomax 0.4 mg p.o. daily. 4. Terazosin 2 mg p.o. at bedtime. 5. Diltiazem-HCL, or Cardizem-CD, 120 mg p.o. b.i.d. DISCONTINUED MEDICATIONS: Include clonidine, lisinopril. Dictated By: ZONIA DOMINGUEZ/CARRILLO Conf#: [id number] DID#: [id number]
== END 2016-07-22 17:04 | disposition home or self-care (01) ==
LOC: E/R 11:55 → MS4 17:34
PROVIDERS: ADMIT Internal Medicine; ATTEND Internal Medicine
DX: I48.0 Paroxysmal atrial fibrillation (principal); I10 Essential (primary) hypertension; N17.9 Acute kidney failure, unspecified; F10.129 Alcohol abuse with intoxication, unspecified; E78.5 Hyperlipidemia, unspecified; E78.00 Pure hypercholesterolemia, unspecified; Z87.442 Personal history of urinary calculi
CPT/HCPCS: 71010; 80053; 80061; 80306; 82550; 82553; 82962; 83036; 83690; 83735; 83880; 84439; 84443; 84484; 85025; 85610; 85730; 93005; 93306; 96360; 96361; 96365; 96375; 99291; G0378; J2405; J3411; J3475; J7030; J1650